=== PATIENT | female | born 1970 | race Caucasian/White ===

== ENCOUNTER 2022-10-09 12:23 | Emergency (ER) | payer OTHER ==
[~2022-10-09] VITALS: Ht 162.6 cm; Wt 65.9 kg
[2022-10-09] MEDS ORDERED: METOPROLOL SUCC25 MG PO (13:30)
[2022-10-09] MEDS ORDERED: ONDANSETRON ODT4 MG PO (15:21)
== END 2022-10-09 15:40 | disposition home or self-care (01) ==
LOC: ED 12:23
DX: J10.1 Influenza due to other identified influenza virus with other respiratory manifestations (principal); F17.200 Nicotine dependence, unspecified, uncomplicated; Z20.822 Contact with and (suspected) exposure to COVID-19
CPT/HCPCS: 36415; 80053; 85025; 87502; 96374; 99284-25; J2405; J7030; U0003

== ENCOUNTER 2023-02-26 05:19 | Inpatient (IN) | payer OTHER ==
[~2023-02-26] VITALS: Ht 162.6 cm; Wt 67.1 kg
[~2023-02-26 05:19] MED LIST: METOPROLOL SUCC25 MG PO; ONDANSETRON ODT4 MG PO
--- NOTE | 2023-02-26 11:50 | NUR ---
PT ARRIVES TO UNIT VIA STRETCHER WITH ED RN AND STUDENT. PT WAKES WITH TRANSFER TO BED, UP TO COMMODE TO VOID. 500ML OF DARK FOUL SMELLING URINE PRODUCED. PT ERRATIC ON FEET BUT STEADY. BACK TO BED AND QUICKLY ASLEEP.
[2023-02-26 11:51] VITALS: BP 150/111
--- NOTE | 2023-02-26 12:35 | NUR ---
PT PLACED ON 2L NC TO MAINTAIN SPO2 >90%. PT RESTING ON SIDE, HOB ELEVATED. RR 21. PT WAKES WITH PLACEMENT OF NC BUT QUICKLY FALLS BACK ASLEEP. CALL LIGHT AT SIDE, BED ALARM ON AND CURTAIN OPEN.
--- NOTE | 2023-02-26 13:48 | NUR ---
PT RESTING IN BED ON SIDE, REMAINS DROWSY BUT ARROUSABLE BY NAME AND TOUCH. BED ALARM ON AND CURTAIN OPEN.
--- NOTE | 2023-02-26 14:21 | NUR ---
RN IN ROOM TO ADMINISTER SCHEDULED MEDICATIONS - PT WAKES TO TOUCH, ORIENTED X3. DENIES PAIN. COOL WASH CLOTH PROVIDED FOR FACE, PT DIAPHORETIC. AFEBRILE.
--- NOTE | 2023-02-26 15:40 | NUR ---
PT RESTING IN BED ON BACK, RR EVEN AND UNLABORED. VS STABLE ON MONITOR. LAB IN ROOM TO DRAW BC.
[2023-02-26 16:00] VITALS: BP 159/104
--- NOTE | 2023-02-26 16:31 | NUR ---
PT UP TO BSC TO VOID WITH RN ASSISTANCE. PT IMPULSIVE WITH MOVEMENT. CONTINUES TO BY DIAPHORETIC, DENIES WANTING BED BATH AT THIS TIME. URINE CLOUDY AND FOUL SMELLING. BACK TO BED AND QUICKLY ASLEEP. ASSESSMENT UNCHANGED FROM PRIOR.
--- NOTE | 2023-02-26 17:35 | NUR ---
MOTHER IN ROOM VISITING PT - QUESTIONS ANSWERED REGARDING PT STATUS AND INFECTION. PT REMAINS DROWSY AND MINIMALLY INTERACTIVE.
[2023-02-26 17:51] VITALS: BP 145/89
[2023-02-27] VITALS (11 sets, daily range): BP systolic 119–158; BP diastolic 75–101
--- NOTE | 2023-02-27 05:20 | NUR ---
patient is resting in bed. labs drawn by phlebotomy. easily aroused.
--- NOTE | 2023-02-27 07:32 | NUR ---
PT ASSESSED AND FOUND TO BE RESTING IN HOSPITAL BED. PT AWAKENS EASILY, IS ALERT AND ORIENTED X 4 WITH A GCS OF 15. PT MOVES ALL FOUR EXTREMITIES WTIH PURPOSE AND FOLLOWS COMMANDS APPROPRIATLEY. PT IS IN NO DISTRESS, RESPIRATIONS ARE NON-LABORED. V/S ASSESSED AND ALARM LIMITS ADJUSTED. BED ALARM ON. PT PROVIDED WITH NURSE CALL LIGHT AND INSTRUCTED ON HOW TO USE IT.
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
--- NOTE | 2023-02-27 08:25 | NUR ---
PT WITH C/O NAUSEA AND CONCERN SHE WONT BE ABLE TO EAT BREAKFAST. PRN ZOFRAN ADMINISTERED. PT RESTING IN BED WITH MEAL TRAY IN FRONT OF HER. CALL LIGHT AT BEDSIDE. PT REMINDED TO CALL RN IF SHE NEEDS TO GET UP OUT OF BED. BED ALARM CHECKED AND REMAINS ON.
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
--- NOTE | 2023-02-27 10:30 | NUR ---
PT UP TO FEET, AND ABLE TO AMBULATE WITHOUT DIFFICULTIES. PT DENIES ANY DIZZINESS OR SOB. PT WALKED HALLWAY X 2.
--- NOTE | 2023-02-27 19:03 | NUR ---
PT REMAINS AWAKE, ALERT AND ORIENTED X 4 WITH A GCS OF 15. PT FOLLOWS ALL APPROPRIATE COMMANDS. CMS INTACT X 4 IN ALL EXTREMITIES. PT HAS BEEN NOROTENSIVE AND A-FEBRILE THROUGHOUT THE SHIFT. HOWEVER. PT HAS BEEN EXPERIENCING FEVER AND CHILLS FOR THE PAST COUPLE HOURS. PT ABLE TO AMBULATE AROUND UNIT WITHOUT PROBLEM. RESPIRATIONS ARE NON-LABORED AND PT REMAINS ON RA. PT WITH ADEQUATE UO, 400 TO 600 CC PER VOID. PT WITH 3 VOIDS THROUGHOUT SHIFT. PT WITH INCREASED NAUSEA UNRESPONSIVE TO ZOFRAN. PRN COMPAZINE ORDERED AND TYLENOL ORDERED FOR GENERALIZED PAIN/ FEVER. LABS: IMPROVED LEUKOCYTOSIS. BUN/ CREATNINE UNREMARKABLE.
--- NOTE | 2023-02-27 20:32 | NUR ---
PT NOTED TO BE MAKING MOANING NOISES, THIS RN INTO ROOM TO CHECK ON HER, SHE RESTING IN BED EYES CLOSED, DID NOT WAKE TO NAME. THIS RN TOUCH PT SHOULDER AND SAID NAME AGAIN PT OPENED HER EYES, THIS RN ASKED "ARE YOU OK?" SHE SAID "NO, I WAS HAVING A NIGHTMARE" THIS RN REASSURED PT THAT SHE IS SAFE IN THE HOSPITAL. SHE NODDED HER HEAD "YES" SHE THEN RESTED BACK INTO BED, NO FURTHER DISTRESS NOTED.
--- NOTE | 2023-02-27 20:48 | NUR ---
PT RESTING IN BED MANAS, EYES CLOSED, RESP RATE 18/MIN, NO DISTRESS NOTED AT THIS TIME
--- NOTE | 2023-02-27 21:06 | NUR ---
PT UP TO BATHROMM INDEPENDENTLY, STEADY GAIT, SUPERVISED. NO DISTRESS NOTED, PT V/S STABLE.
--- NOTE | 2023-02-27 23:18 | NUR ---
PT REPORTS NO NAUSEA OR PAIN AT THIS TIME SHE REQUESTED SOMETHING TO EAT. PUDDING AND 7 UP PROVIDED.
--- NOTE | 2023-02-27 23:22 | NUR ---
PT PROVIDED LUNCH BOX SHE REPORTS SHE IS HUNGRY FOR MORE THAN SNACKS, PT REMINDED TO EAT SLOW DUE TO NAUSEA ON DAYSHIFT. SHE AGREED.
--- NOTE | 2023-02-27 23:48 | NUR ---
PT BACK TO SLEEP NOTED TO BE SNORING AT THIS TIME. TOLERATED LUNCH BOX AND PUDDING, NO NAUSEA OR PAIN REPORTED AFTER.
[2023-02-28 01:32] VITALS: BP 150/93
[2023-02-28 05:11] VITALS: BP 126/77
--- NOTE | 2023-02-28 05:17 | NUR ---
PT RESTING IN BED. ALERT TO STAFF IN ROOM FOR AM CARE, ASSESSMENT, V/S AND LAB IN FOR AM LAB DRAW. PT HAS NO COMPLAINTS OF NAUSEA OR PAIN, NO REQUESTS FOR NEEDS AT THIS TIME
[2023-02-28 08:30] VITALS: BP 134/97
--- NOTE | 2023-02-28 08:35 | NUR ---
Spoke with Boyfrienstephanie in the room. She denies needs and plans on dc to home with mom and aunt today.
--- NOTE | 2023-02-28 08:45 | NUR ---
MD @ BEDSIDE, DC PT HOME, NOTED TO NOT GIVE LOPRESSOR, PT WILL TAKE @ HOME, WILL GIVE IV ABX
--- NOTE | 2023-02-28 09:23 | NUR ---
PT DC RIGHT AC IV TAKEN OUT, NO PROBLEMS NOTED
[2023-02-28] MEDS ORDERED: CEFPODOXIME PR200 MG PO (09:29)
[2023-02-28] MEDS ORDERED: VENTOLIN HFA18 GM INH (10:18)
[2023-02-28] MEDS ORDERED: SPIRIVA RESPIMAT4 GM INH (10:19)
--- NOTE | 2023-02-28 10:20 | NUR ---
pharmacy completed med rec, pt dc instructions reviewed. pt able to ambulate with no problems and left w/SO
--- NOTE | 2023-02-28 10:20 | NUR ---
MED REC COMPLETE
== END 2023-02-28 10:20 | disposition home or self-care (01) | DRG 689 ==
LOC: ED 05:19 → CCU 10:16
PROVIDERS: ADMIT Internal Medicine; ATTEND Family Medicine
DX: N10 Acute pyelonephritis (principal); G93.41 Metabolic encephalopathy; F15.10 Other stimulant abuse, uncomplicated; Z20.822 Contact with and (suspected) exposure to COVID-19; I10 Essential (primary) hypertension; F12.10 Cannabis abuse, uncomplicated; B96.20 Unspecified Escherichia coli [E. coli] as the cause of diseases classified elsewhere; F17.210 Nicotine dependence, cigarettes, uncomplicated; Z98.51 Tubal ligation status; Z79.899 Other long term (current) drug therapy
CPT/HCPCS: 36415; 71045; 74177; 80048; 80053; 81001; 83605; 83690; 83735; 85025; C9113; J0696; J1200; J1650; J1790; J2405; J7030; J7121; Q9967; U0003

== ENCOUNTER 2023-11-07 09:54 | Emergency (ER) | payer OTHER ==
[~2023-11-07] VITALS: Ht 170.2 cm; Wt 69.3 kg
[~2023-11-07 09:54] MED LIST changes: +CEFPODOXIME PR200 MG PO; +SPIRIVA RESPIMAT4 GM INH; +VENTOLIN HFA18 GM INH
[2023-11-07] MEDS ORDERED: HYDROCODON-ACE1 EA11 PO (10:44)
[2023-11-07 11:09] VITALS: BP 124/88
== END 2023-11-07 11:00 | disposition home or self-care (01) ==
LOC: ED 09:54
DX: S82.431A Displaced oblique fracture of shaft of right fibula, initial encounter for closed fracture (principal); F17.200 Nicotine dependence, unspecified, uncomplicated; W00.0XXA Fall on same level due to ice and snow, initial encounter; Z79.899 Other long term (current) drug therapy
CPT/HCPCS: 73610; 99283-25; A9270

== ENCOUNTER 2024-05-31 19:54 | Observation (INO) | payer OTHER ==
[~2024-05-31] VITALS: Ht 170.2 cm; Wt 71.1 kg
[~2024-05-31 19:54] MED LIST changes: +HYDROCODON-ACE1 EA11 PO
[2024-05-31 20:29] LABS: BILIRUBIN, URINE NEGATIVE (negative); BLOOD/HGB, URINE LARGE (Negative); KETONE, URINE TRACE (Negative); LEUK ESTERASE, URINE TRACE (negative); NITRITE, URINE NEGATIVE (negative)
[2024-05-31] MEDS ORDERED: ondansetron HCL 4 MG/2 ML VIAL IV ONE (20:30)
[2024-05-31 20:45] LABS: BACTERIA, URINE 1+ /hpf (negative); CASTS, URINE NONE SEEN \\lpf; COLLECTION TYPE, URINE CLEAN CATCH; CRYSTALS, URINE NONE SEEN (0-1+); EPITHELIAL CELLS, URINE SQUAMOUS 2+ /lpf (0-1+); REFLEX CULTURE, URINE No (No)
[2024-05-31] MEDS ORDERED: ONDANSETRON 4 MG TAB ODT SL ONE (21:00)
[2024-05-31] MEDS ORDERED: KETOROLAC TROMETHAMINE 30 MG/ML VIAL IV ONE (21:15)
[2024-05-31] MEDS ORDERED: LACTATED RINGER'S 1,000 ML IV ONE ×2 (21:15→23:15)
[2024-05-31] MEDS ORDERED: FAMOTIDINE 20 MG/ 2 ML VIAL IV ONE ×2 (21:15→23:15)
[2024-05-31 21:20] LABS: BASOPHILS 0.4 % (0-2); EOSINOPHILS 0.1 % (0-6); HEMATOCRIT 45.2 % (35.0-50.0); HEMOGLOBIN 15.2 g/dL (12.0-18.0); LYMPHOCYTES 9.4 % (24-44); MCH 31.3 (27-36); MCHC 33.7 g/dl (30-36); MCV 92.8 fl (81-99); MONOCYTES 3.1 % (0-12); PLATELET COUNT 408 K/uL (140-440); RBC 4.87 M/ul (4.3-5.7); RDW 13.8 (10.5-15.0)
[2024-05-31 21:36] LABS: ALBUMIN 3.7 g/dL (3.4-5.0); ALBUMIN/GLOBULIN RATIO 0.86 (1.1-2.4); ANION GAP 12.7 (7-21); BILIRUBIN, TOTAL 0.7 ng/dL (0.2-1.0); BUN/CREATININE RATIO 12.32 (6.0-28.6); CALCIUM 9.5 mg/dL (8.5-10.1); CREATININE, SERUM 0.73 mg/dL (0.55-1.02); MAGNESIUM 2.2 mg/dL (1.8-2.4); POTASSIUM 3.7 mmol/L (3.5-5.1)
[2024-05-31 21:37] LABS: AMPHETAMINES, URINE POSITIVE (NEGATIVE)
[2024-05-31 21:38] LABS: BARBITURATES, URINE NEGATIVE (NEGATIVE); BENZODIAZEPINE, URINE NEGATIVE (NEGATIVE); BUPRENORPHINE, URINE NEGATIVE (NEGATIVE); CANNABINOID, URINE POSITIVE (NEGATIVE); COCAINE, URINE NEGATIVE (NEGATIVE); ECSTASY, URINE POSITIVE (NEGATIVE); FENTANYL, URINE NEGATIVE (NEGATIVE); METHADONE, URINE NEGATIVE (NEGATIVE); OPIATES, URINE NEGATIVE (NEGATIVE); OXYCODONE, URINE NEGATIVE (NEGATIVE); PHENCYCLIDINE, URINE NEGATIVE (NEGATIVE)
[2024-05-31] MEDS ORDERED: DEXTROSE 5% 100 ML IV ONE (23:12)
[2024-05-31] MEDS ORDERED: droPERidol 5 MG/2 ML VIAL IV ONE (23:15)
[2024-05-31] MEDS ORDERED: LACTATED RINGER'S 1,000 ML IV SCH (23:15)
[2024-05-31] MEDS ORDERED: ondansetron HCL 4 MG/2 ML VIAL IV PRN (23:15)
[2024-05-31] MEDS ORDERED: PIPERACILLIN/TAZOBACTAM 3.375 GM in DEXTROSE 5% 100 ML IV ONE (23:15)
[2024-05-31] MEDS ORDERED: hydrALAZINE HCL 20 MG/ML VIAL IV ONE (23:45)
[2024-06-01] VITALS (7 sets, daily range): BP systolic 146–168; BP diastolic 81–98
--- NOTE | 2024-06-01 00:45 | NUR ---
REPORT RECEIVED FROM ED RN atul MCGOVERN THEN TRANSPORTED TO MS FLOOR VIA BED AND SELF SCOOTED TO MS BED. ADMISSION COMPLETED AND REPORT GIVEN TO PRIMARY RN JEFE PATINO ALARM ON FOR SAFETY. CALL LIGHT IN REACH AND TELE IN PLACE.
--- NOTE | 2024-06-01 00:54 | NUR ---
PT ADMITTED TO ROOM 113 VIA STRETCHER FROM ER, ADMIT IN PROGRESS, PT DROWSY AND FREQUENTLY NEEDS TO BE AWAKEN TO ANSWER QUESTIONS, IV PATENT RIGHT AC, FLUSHES WELL AND HAS GOOD BLOOD RETURN, PT WITHOUT COMPLAINTS OF PAIN AT THIS TIME, PT FALLS BACK TO SLEEP WHEN LEFT UNDISTURBED, BED ALARM ON, SIDE RAILS UP X 2.
--- NOTE | 2024-06-01 03:05 | NUR ---
PT APPEARS TO SLEEP, LAYING ON SIDE, RESP EVEN AND REG, IVF INFUSING WELL.
--- NOTE | 2024-06-01 04:00 | NUR ---
PT CONTINUES TO SLEEP, RESP EVEN AND REG.
[2024-06-01 05:20] LABS: BASOPHILS 0.6 % (0-2); EOSINOPHILS 0.3 % (0-6); HEMATOCRIT 41.9 % (35.0-50.0); HEMOGLOBIN 14.2 g/dL (12.0-18.0); LYMPHOCYTES 17.7 % (24-44); MCH 31.1 (27-36); MCHC 33.9 g/dl (30-36); MCV 91.8 fl (81-99); MONOCYTES 5.8 % (0-12); NEUTROPHILS 75.6 % (39-80); PLATELET COUNT 381 K/uL (140-440); RBC 4.57 M/ul (4.3-5.7); RDW 13.8 (10.5-15.0)
[2024-06-01 05:35] LABS: ALBUMIN 3.1 g/dL (3.4-5.0); ALBUMIN/GLOBULIN RATIO 0.79 (1.1-2.4); ANION GAP 12.7 (7-21); BILIRUBIN, TOTAL 0.6 ng/dL (0.2-1.0); BUN/CREATININE RATIO 9.85 (6.0-28.6); CALCIUM 8.7 mg/dL (8.5-10.1); CREATININE, SERUM 0.71 mg/dL (0.55-1.02); POTASSIUM 3.7 mmol/L (3.5-5.1)
--- NOTE | 2024-06-01 05:56 | NUR ---
VS DONE PER HAYLEY BRIQUETTE MAKER, REVIEWED AND STABLE FOR PT, PT WITHOUT REQUESTS AT THIS TIME.
[2024-06-01] MEDS ORDERED: PIPERACILLIN/TAZOBACTAM 3.375 GM in DEXTROSE 5% 100 ML IV SCH (06:00)
--- NOTE | 2024-06-01 06:15 | NUR ---
PT AWAKEN TO SEE IF SHE COULD VOID, PT UP TO BR AND VOIDED 250ML IRLANDA URINE, GAIT STEADY, PT BACK TO BED, STATES HER PAIN IS SO MUCH LESS THAN WHEN SHE CAME TO THE ER, PT DENIES NEEDS AT THIS TIME, DESIRES TO SLEEP, IV PATENT, SITE INTACT.
[2024-06-01] MEDS ORDERED: PIPERACILLIN/TAZOBACTAM 3.375 GM VIAL ONE (06:23)
--- NOTE | 2024-06-01 07:15 | NUR ---
REPORT RECIEVED FROM SUKUMAR Abdul RN. PT RESTING IN BED ON LEFT SIDE. EYES CLOSED, RR EVEN AND UNLABORED. IV INFUSING WNL. NO NEEDS IDENTIFIED AT THIS TIME. CALL LIGHT IN REACH.
[2024-06-01] MEDS ORDERED: PROCHLORPERAZINE EDISYLATE 10 MG/2 ML VIAL IV PRN (08:30)
[2024-06-01] MEDS ORDERED: NICOTINE 14 MG/24 HR 1 EA TDSY TD PRN (10:45)
--- NOTE | 2024-06-01 10:50 | NUR ---
IN TO ROUND ON PT. PT RESTING IN BED ON RIGHT SIDE. EYES CLOSED, RR EVEN AND UNLABORED. PT AWAKENS AND RESPONDS WHEN ADDRESSED. PT A&O TO ALL. ASSESSMENT COMPLETE. LUNG SOUNDS CLEAR. BOWEL TONES ACTIVE. ABD SOFT AND NON-TENDER WITH PALPATION. PT DENIES NUMBNESS OR TINGLING IN EXTREMITIES AT THIS TIME. PEDAL PULSES PALPABLE, STRONG AND EQUAL. RADIAL PULSES PALPABLE, STRONG AND EQUAL. CMS WNL. PT DENIES ANY PAIN AT THIS TIME. PT REPORTING NAUSEA. PT DENIES ANY OTHER NEEDS AT THIS TIME. CALL LIGHT IN REACH.
--- NOTE | 2024-06-01 11:10 | NUR ---
PRN VAIBHAVFRAN ADMINISTERED, SEE MAR. PT DENIES ANY OTHER NEEDS AT THIS TIME. CALL LIGHT IN REACH. IV FLUSHES WNL AND IS INFUSING WNL.
[2024-06-01] MEDS ORDERED: ondansetron HCL 4 MG/2 ML VIAL IV PRN (12:00)
--- NOTE | 2024-06-01 13:10 | NUR ---
IN TO ROUND ON PT. PT RESTING IN BED WITH EYES CLOSED, RR EVEN AND UNLABORED. IV INFUSING WNL. NO NEEDS IDENTIFIED AT THIS TIME. CALL LIGHT IN REACH.
--- NOTE | 2024-06-01 13:35 | NUR ---
pt urine is cloudy. rn notified
[2024-06-01] MEDS ORDERED: ACETAMINOPHEN 500 MG TAB PO PRN (14:00)
[2024-06-01] MEDS ORDERED: MAGNESIUM HYDROXIDE 30 ML UDC PO PRN (14:00)
--- NOTE | 2024-06-01 14:47 | NUR ---
IN TO ADMINISTER MEDICATION, SEE MAR. PT LAYING IN BED AND RESPONDS WHEN ADDRESSED. PT DENIES ANY PAIN AT THIS TIME. ASSESSMENT COMPLETE. BOWEL TONES ACTIVE. ABD SOFT WITH PALPATION. ABD TENDER WITH PALPATION TO LUQ. PT DENIES ANY OTHER NEEDS AT THIS TIME. CALL LIGHT IN REACH.
--- NOTE | 2024-06-01 14:52 | NUR ---
IN TO ROUND ON PT. PT LAYING IN BED VISITING WITH MOTHER. PTs MOTHER ASKING FOR UPDATE. PT STATES "YOU CAN TELL HER, SHE IS MY MOM." PTs MOTHER UPDATED. PT REPORTING NAUSEA. PRN NAUSEA MEDICATION ADMINISTERED, SEE MAR. ALCOHOL SWABS PROVIDED FOR NAUSEA. PT REPORTING ALCOHOL SWAB HELPS A LITTLE. PT DENIES ANY OTHER NEEDS AT THIS TIME. CALL LIGHT IN REACH.
[2024-06-01] MEDS ORDERED: METOPROLOL SUCCINATE 25 MG TABCR PO SCH (15:10)
[2024-06-01] MEDS ORDERED: ENOXAPARIN SODIUM 40 MG/0.4 ML SYR SUB-Q SCH (15:30)
--- NOTE | 2024-06-01 16:20 | NUR ---
MED REC COMPLETE
--- NOTE | 2024-06-01 16:33 | NUR ---
IN IV PUMP ALARMING, RESOLVED. PT RESTING IN BED ON LEFT SIDE. EYES CLOSED, RR EVEN AND UNLABORED. NO NEEDS IDENTIFIED AT THIS TIME. CALL LIGHT IN REACH.
--- NOTE | 2024-06-01 17:27 | NUR ---
IN IV PUMP ALARMING, RESOLVED. PT RESTING IN BED WITH EYES CLOSED, RR EVEN AND UNLBAORED. NO NEEDS IDENTIFIED AT THIS TIME. CALL LIGHT IN REACH.
--- NOTE | 2024-06-01 18:00 | NUR ---
IN TO ROUND ON PT. PT RESTING IN BED. PT RESONDS WHEN ADDRESSED. PT DENIES ANY PAIN AT THIS TIME. PT DENIES NAUSEA AT THIS TIME. PTs DINNER TRAY SET UP FOR PT. FRESH ICE WATER PROVIDED. IV INFUSING WNL. PT DENIES ANY OTHER NEEDS AT THIS TIME. CALL LIGHT IN REACH.
--- NOTE | 2024-06-01 19:20 | NUR ---
SHIFT REPORT RECEIVED FROM DURAN ANTOINE, PT RESTING QUIETLY, REST EVEN AND REG.
--- NOTE | 2024-06-01 19:41 | NUR ---
THIS RN CALLED DR. CONNER REGARDING PTs IV FLUIDS FALLING OFF EMAR. ALSO INFORMING DR. CONNER THAT PT HAS HAD POOR PO INTAKE AND HAS COMPLAINED OF NAUSEA TODAY. VERBAL ORDERS VERIFIED WITH READBACK FOR "LR AT 75ML/HR CONTINUOUS." ALSO ASKING IF TELE FOR PT CAN BE DC'd. VERBAL ORDER VERIFIED WITH READBACK TO "DC PTs TELE."
[2024-06-01] MEDS ORDERED: LACTATED RINGER'S 1,000 ML IV SCH (19:45)
--- NOTE | 2024-06-01 20:55 | NUR ---
PT AWAKE AND ALERT, VS DONE PER CHIEF DEVELOPMENT OFFICER AND REVIEWED, ASSESSMENT COMPLETED, PT TEARFUL FOR A FEW MOMENTS BUT DECLINES WANTING TO TALK, ASKED IF SHE IS PAINFUL AND SHE DENIES THIS, PT STATES SHE WOULD LIKE A "CHEESE BURGER" AND THEN SMILES, PT KNOW SHE IS ON CLEAR LIQUIDS ONLY, PT ATTEMPTING TO REST.
--- NOTE | 2024-06-01 20:55 | NUR ---
Provided Pt with warm blanket and fresh ice water. No other needs expressed by Pt. Call light left in reach. Bed alarm set.
[2024-06-01] MEDS ORDERED: MELATONIN 3 MG TAB PO PRN (21:00)
--- NOTE | 2024-06-01 22:55 | NUR ---
in room to hang scheduled iv abx per request of primary rn shawn. iv fluids infusing as directed. iv abx placed as secondary line on channel B. iv site wnl, brisk blood return noted. pt also given prn tylenol for reported 5/10 abd/back pain. no further needs, call light in reach.
--- NOTE | 2024-06-02 00:50 | NUR ---
PT CONTINUES TO SLEEP, RESP EVEN AND REG.
--- NOTE | 2024-06-02 02:15 | NUR ---
PT APPEARS TO SLEEP, RESP EVEN AND REG, WITHOUT DISTRESS.
--- NOTE | 2024-06-02 03:35 | NUR ---
PT APPEARS TO SLEEP, REPOSITIONED SELF TO LEFT SIDE, IVF INFUSING WELL.
[2024-06-02 03:47] VITALS: BP 146/97
--- NOTE | 2024-06-02 04:09 | NUR ---
iv abx/flush complete, iv site remains wnl. pt reports tylenol from earlier in the shift helped, denies needs or concerns. call light in reach. iv fluids continue to infuse as directed.
[2024-06-02 05:43] VITALS: BP 149/99
--- NOTE | 2024-06-02 05:43 | NUR ---
PT AWAKE, TEARFUL, STATES SHE JUST GOT UP TO VOID, C/O PAIN RADIATING ACROSS LOWER BACK, 04/22, STATES SHE HAD THIS SAME PAIN AT HOME PRIOR TO COMING IN, SHE STATES SHE FORGOT TO TELL MD THIS AT ADMISSION, PT MEDICATED WITH TYLENOL PER ORDER, VS COMPLETED. FRESH WATER GIVEN, PT RESTING WITH EYES CLOSED.
--- NOTE | 2024-06-02 06:50 | NUR ---
IV PUMP ALARMING, DISTAL OCCLUSION. ISSUE RESOLVED, IV SITE REMAINS WNL. pt DENEIS NEEDS OR CONCERNS, CALL LIGHT IN REACH.
--- NOTE | 2024-06-02 07:17 | NUR ---
Pt report received from ARASH Stephens. Pt is asleep, supine in bed, breathing is regular, even, and non-labored. IVF, LR, running at 75ml/hr as well as Zosyn at 25ml/hr. White board updated. Call light in reach.
[2024-06-02 09:11] VITALS: BP 163/98
[2024-06-02 09:15] VITALS: BP 163/98
[2024-06-02] MEDS ORDERED: AMOX TR-K CLV1 EAC1 PO (10:25)
[2024-06-02] MEDS ORDERED: PHARMACY RENAL DOSE ADJUSTMENT 1 DOSE MISC PO SCH (12:00)
--- NOTE | 2024-06-02 12:54 | NUR ---
PT PROVIDED WITH SHOWER SUPPLIES. IV REMOVED, PRESSURE DRESSING APPLIED. INSTRUCTED PT TO USE CALL LIGHT IF SHE NEEDS ASSISTANCE. PT'S SON IS IN ROOM.
--- NOTE | 2024-06-02 13:28 | NUR ---
PT COMPLETED SHOWER AND DRESSED SELF. DISCUSSED DISCHARGE INSTRUCTIONS WITH PT AND PT'S SON, BOTH VERBALIZE UNDERSTANDING. WRITTEN COPY PROVIDED TO PT. PT STATES HER RIDE WILL BE HERE AT 1400.
--- NOTE | 2024-06-02 13:40 | NUR ---
Advised by Charge Nurse Maegan Salcedo that this pt has reviewed her discharge packet with her and has signed for discharge. She is just waiting for her ride to arrive.
[2024-06-02 14:04] VITALS: BP 115/73
--- NOTE | 2024-06-03 11:29 | EKG ---
[facility] [address] [facility] [place], [place] [address] Signed Normal sinus rhythm with sinus arrhythmia Normal ECG No previous ECGs available Confirmed by VIKRAM ALY MD ([id number]) on 06/03/2024 11:29:32 AM Electronically Signed By: VIKRAM LAY 06/03/24 1129 PATIENT NAME: OLY MORENO Electrocardiogram DATE OF : 72 PHYSICIAN: VIKRAM ALY REPORT #: [id number] REPORT IS CONFIDENTIAL AND NOT TO BE RELEASED WITHOUT AUTHORIZATION
== END 2024-06-02 14:05 | disposition home or self-care (01) ==
LOC: ED 19:54 → MS 23:07
PROVIDERS: Internal Medicine; ADMIT Family Medicine; ATTEND Family Medicine
DX: K57.30 Diverticulosis of large intestine without perforation or abscess without bleeding (principal); D72.829 Elevated white blood cell count, unspecified; E87.1 Hypo-osmolality and hyponatremia; M54.9 Dorsalgia, unspecified; I10 Essential (primary) hypertension; F17.210 Nicotine dependence, cigarettes, uncomplicated; Z90.49 Acquired absence of other specified parts of digestive tract; Z79.899 Other long term (current) drug therapy
CPT/HCPCS: 36415; 71045; 74177; 80053; 80307; 81001; 83690; 83735; 84484; 84703; 85025; 93005; 93010; A9270; J0360; J1650; J1790; J1885; J2405; J2543; J7121; Q9967